=== PATIENT | male | born 1975 | race African-American/Black ===

== ENCOUNTER 2021-03-07 14:13 | Emergency (ER) | payer OTHER, BC ==
[~2021-03-07 14:13] MED LIST: Iopamidol-370 76% 500 ML 1 ML ONE
[2021-03-07 14:35] LABS: #Basophils 0.1 thou/uL (0.0-0.2); #Eosinphils 0.5 thou/uL (0.0-0.7); #Lymphocytes 3.5 thou/uL (1.20-3.40); #Monocytes 0.5 thou/uL (0.11-0.59); #Neutrophils 2.7 thou/uL (1.40-6.50); %Basophils 1.2 % (0.0-1.0); %Eosinophils 6.7 % (0.0-10.0); %Monocytes 6.6 % (0.0-10.0); %Neutrophils 37.5 % (42.0-75.0); Hemoglobin 14.3 g/dL (14.0-18.0); Mean Corpuscular HGB CONC 32.7 g/dL (32.0-36.0); Mean Corpuscular Hemoglobin 28.7 pg (27.0-31.0); Mean Corpuscular Volume 87.8 fL (78.0-98.0); Platelet Count 225 thou/uL (130-400); RBC Distribution Width 12.1 % (11.5-14.5); Red Blood Cell (RBC) Count 4.98 mill/uL (4.70-6.10); White Blood Cell (WBC) Count 7.3 thou/uL (4.8-10.8)
[2021-03-07 15:06] LABS: ALT (SGPT) 34 U/L (8-55); AST (SGOT) 22 U/L (5-34); Albumin 3.9 g/dL (3.5-5.0); Alcohol Less than 10 mg/dL (Less than 10); Alkaline Phosphatase 56 U/L (40-110); Anion Gap 11 mmol/L (10-20); BUN (Urea Nitrogen) 6 mg/dL (8.9-20.6); Bilirubin, Total 0.3 mg/dL (0.2-1.2); Calc. Creatinine Clearance 0 mL/min (70-130); Calcium 9.1 mg/dL (7.8-10.44); Carbon Dioxide 28 mmol/L (22-29); Chloride 106 mmol/L (98-107); Globulin 2.9 g/dL (2.4-3.5); Glucose 97 mg/dL (70-105); Lipase 28 U/L (8-78); Protein, Total 6.8 g/dL (6.0-8.3); Sodium 141 mmol/L (136-145)
[2021-03-07] MEDS ORDERED: Boostrix 0.5 ML (Tdap) VIAL ONE (16:14)
[2021-03-07] MEDS ORDERED: Fentanyl 100 MCG/2 ML VIAL ONE (16:14)
[2021-03-07] MEDS ORDERED: Lidocaine 1% PF 5 ML VIAL ONE (17:24)
[2021-03-07] MEDS ORDERED: Ibuprofen 800 MG TAB ONE (18:43)
[2021-03-07] MEDS ORDERED: Cyclobenzaprine 10 MG TAB ONE (18:43)
== END 2021-03-07 18:45 | disposition home or self-care (01) ==
LOC: ERS 14:13
DX: S06.0X9A Concussion with loss of consciousness of unspecified duration, initial encounter (principal); S01.81XA Laceration without foreign body of other part of head, initial encounter; F17.210 Nicotine dependence, cigarettes, uncomplicated; V89.2XXA Person injured in unspecified motor-vehicle accident, traffic, initial encounter
CPT/HCPCS: 12014; 70450; 71045; 71260; 72125; 74177; 80053; 80307; 83605; 83690; 85025; 90471; 90715; 96374; G0390; J3010; Q9967

== ENCOUNTER 2022-04-01 03:00 | Emergency (ER) | payer BC ==
[2022-04-01] MEDS ORDERED: diphenhydrAMINE 50 MG/ML VIAL ONE (03:18)
[2022-04-01] MEDS ORDERED: Metoclopramide HCl 10 MG/2 ML VIAL ONE (03:18)
== END 2022-04-01 05:20 | disposition home or self-care (01) ==
LOC: ERS 03:00
DX: R51.9 Headache, unspecified (principal); F17.210 Nicotine dependence, cigarettes, uncomplicated
CPT/HCPCS: 70450; 96365; 96375; J1200; J2765

== ENCOUNTER 2023-08-24 20:17 | Emergency (ER) | payer BC, OTHER ==
[2023-08-25 00:12] LABS: #Basophils 0.1 thou/uL (0.0-0.2); #Eosinphils 0.5 thou/uL (0.0-0.7); #Monocytes 0.7 thou/uL (0.11-0.59); #Neutrophils 5.7 thou/uL (1.40-6.50); %Basophils 0.6 % (0.0-1.0); %Eosinophils 4.9 % (0.0-10.0); %Lymphocytes 34.6 % (21.0-51.0); %Monocytes 6.8 % (0.0-10.0); %Neutrophils 52.9 % (42.0-75.0); Hematocrit 44.8 % (42.0-52.0); Hemoglobin 14.9 g/dL (14.0-18.0); Mean Corpuscular HGB CONC 33.3 g/dL (32.0-36.0); Mean Corpuscular Volume 87.2 fl (78.0-98.0); Mean Platelet Volume 9.4 fL (7.4-10.4); Platelet Count 296 10x3/uL (130-400); RBC Distribution Width 13.2 % (11.5-14.5); Red Blood Cell (RBC) Count 5.14 mill/uL (4.70-6.10); White Blood Cell (WBC) Count 10.8 10x3/uL (4.8-10.8)
[2023-08-25 00:38] LABS: Troponin I Less than 0.010 ng/mL (< 0.028)
[2023-08-25 00:40] LABS: ALT (SGPT) 21 U/L (8-55); AST (SGOT) 15 U/L (5-34); Albumin 4.1 g/dL (3.5-5.0); Alkaline Phosphatase 69 U/L (40-110); Anion Gap 12 mmol/L (10-20); BUN (Urea Nitrogen) 12 mg/dL (8.9-20.6); Bilirubin, Total 0.5 mg/dL (0.2-1.2); Calc. Creatinine Clearance 0 mL/min (70-130); Calcium 9.1 mg/dL (7.8-10.44); Carbon Dioxide 26 mmol/L (22-29); Chloride 102 mmol/L (98-107); Estimated GFR 81; Globulin 3.2 g/dL (2.4-3.5); Glucose 88 mg/dL (70-105); Potassium 4.2 mmol/L (3.5-5.1); Protein, Total 7.3 g/dL (6.0-8.3); Sodium 136 mmol/L (136-145)
== END 2023-08-25 01:14 | disposition home or self-care (01) ==
LOC: ERS 20:17
DX: S93.402A Sprain of unspecified ligament of left ankle, initial encounter (principal); S29.9XXA Unspecified injury of thorax, initial encounter; F17.210 Nicotine dependence, cigarettes, uncomplicated; V89.2XXA Person injured in unspecified motor-vehicle accident, traffic, initial encounter
CPT/HCPCS: 36415; 71045; 80053; 84484; 85025; 93005

== ENCOUNTER 2023-09-03 23:11 | Emergency (ER) | payer BC, SELFPAY ==
[2023-09-03] MEDS ORDERED: Ketorolac Tromethamine 30 MG (1 mL) VIAL ONE (23:51)
== END 2023-09-04 02:00 | disposition home or self-care (01) ==
LOC: ERS 23:11
DX: M25.572 Pain in left ankle and joints of left foot (principal); M79.672 Pain in left foot; F17.210 Nicotine dependence, cigarettes, uncomplicated
CPT/HCPCS: 96372; J1885

== ENCOUNTER 2024-04-30 03:51 | Emergency (ER) | payer SELFPAY ==
[2024-04-30] MEDS ORDERED: HYDROcodone/Acetaminophen 10/325 mg Tablet ONE (04:19)
== END 2024-04-30 04:23 | disposition home or self-care (01) ==
LOC: ERS 03:51
DX: K02.9 Dental caries, unspecified (principal); F17.210 Nicotine dependence, cigarettes, uncomplicated
CPT/HCPCS: 99282